=== PATIENT | female | born 1970 | race Native Hawaiian/Other Pacific Islander ===

== ENCOUNTER 2017-12-29 13:50 | Emergency (ER) | payer SELFPAY ==
--- NOTE | 2017-12-29 16:01 | C.PDOC ---
47-year-old female, presents to the emergency department with complaints of pain to her right breast for 2 months. Patient states she has felt a "hard lump " in the breast for one year, and has a scheduled mammogram and ultrasound on 01/18/18. Patient denies chest pain, palpitations, SOB, fever, redness, swelling, discharge, nausea/vomiting. Of note, pt requesting a test. Denies family history of breast cancer (Jimena Peterson) History Per: Patient History/Exam Limitations: no limitations Current Symptoms Are (Timing): Still Present <Jimena Peterson - Last Filed: 12/29/17 18:41> <Dylan Shukla - Last Filed: 12/30/17 14:04> Time Seen by Provider: 12/29/17 15:06 Chief Complaint (Nursing): Breast Problem Past Medical History Reviewed: Historical Data, Nursing Documentation, Vital Signs - Medical History PMH: No Chronic Diseases Family History: States: No Known Family Hx - Social History Hx Alcohol Use: No Hx Substance Use: No - Immunization History Hx Tetanus Toxoid Vaccination: No Hx Influenza Vaccination: No Hx Pneumococcal Vaccination: No <Jimena Peterson - Last Filed: 12/29/17 18:41> Vital Signs: Last Vital Signs Temp 98 F 12/29/17 16:54 Pulse 78 12/29/17 16:54 Resp 18 12/29/17 16:54 BP 136/74 12/29/17 16:54 Pulse Ox 99 12/29/17 18:46 Review Of Systems Constitutional: Negative for: Fever, Chills Cardiovascular: Positive for: Other (breast pain). Negative for: Chest Pain Gastrointestinal: Negative for: Nausea, Vomiting, Abdominal Pain Musculoskeletal: Negative for: Back Pain Skin: Negative for: Rash Neurological: Negative for: Weakness, Numbness, Headache, Dizziness <Jimena Peterson - Last Filed: 12/29/17 18:41> Physical Exam - Physical Exam Appears: Non-toxic, No Acute Distress Skin: Normal Color, Warm, Dry, No Rash Head: Atraumatic, Normacephalic Eye(s): bilateral: Normal Inspection, Eyelid Inflammation Nose: Normal Oral Mucosa: Moist Lips: Normal Appearing Neck: Normal ROM Chest: Symmetrical, Other (Breasts symmetric with normal appearance, no erythema or skin dimpling or other skin changes. Right breast with firm fibrous/ nodular tissue and tendernss above the areola at 12-1oclock) Cardiovascular: Rhythm Regular, No Murmur Respiratory: Normal Breath Sounds, No Accessory Muscle Use Extremity: Normal ROM, No Deformity, No Swelling Neurological/Psych: Oriented x3, Normal Speech <Jimena Peterson L - Last Filed: 12/29/17 18:41> ED Course And Treatment O2 Sat by Pulse Oximetry: 99 (RA) Pulse Ox Interpretation: Normal - CT Scan/US breast US Other Rad Studies (CT/US): Read By Radiologist, Radiology Report Reviewed CT/US Interpretation: Accession No. : [id number]. Patient Name / ID : FRACISCO ENCARNACION / [id number]. Exam Date : 12/29/2017 15:37:03 ( Approved ). Study Comment : Sex / Age : F / 47Y. Creator : Shefali Amado. Dictator : Shefali Amado. Blister Rust Eradicator : Header Up : Shefali Gill. Approver2 : Report Date : 12/29/2017 16:07:33. My Comment : . HISTORY: old female with right breast pain which according to Jimena, a PA in the emergency room who has ordered the exam has her pain mostly in the 12 to 1 o'clock position. This apparently was not evident to the speech therapist technician the hence no such labeling on the images is provided. No personal or family history of breast cancer. Patient denies ever having any prior mammograms. TECHNIQUE: Sonographic evaluation of the right breast was performed. FINDINGS: RIGHT BREAST: Right breast 11 o'clock: On series 1, image number 13, a single image there is a the parallel hypoechoic focus which according to the technologist's bleed was probably breast tissue. The appearance stand out to me and measures 8 x 3 mm. The single image. The remainder the presented images are unremarkable. No axillary lymphadenopathy identified. IMPRESSION: Indeterminate focus right breast 11 o'clock possibly technical and incompletely evaluated this urgent basis. No drainable abscess seen. Further evaluation is recommended. BIRADS: BIRADS 0 Incomplete - Need additional imaging evaluation and/or prior mammograms for comparison. Recommendation: Recall for additional imaging and/or comparison with prior examination, as described above. Patient will be contacted. The patient is recommended to present to her physician for a directed physical exam of her right breast pain to evaluate for any right breast lumps. Afterwards the patient is recommended to have a diagnostic mammogram (patient's ages 47) the right being a diagnostic in the left being screening. The patient is also recommended to have a minimal repeat right breast ultrasound following a physician or PA or nurse's physical examination patient's right breast. A left breast evaluation is also recommended prior to any subsequent imaging evaluation. Comments: No emergent drainable abscess identified in the right breast. Patient management was directly discussed with an Hess in the emergency room who has ordered the exam immediately prior to this dictation <Jimena Peterson - Last Filed: 12/29/17 18:41> Medical Decision Making <Jimena Peterson - Last Filed: 12/29/17 18:41> <Dylan Shukla Last Filed: 12/30/17 14:04> Medical Decision Making: Impression: Right breast pain Plan: * US Breast at patient request * Tylenol * UA test negative US of breast ordered and reviewed showing no drainable abscess. Patient has to follow up for further evaluation and have mammogram as scheduled for January 18. Patient stable for discharge (Jimena Peterson) Disposition Counseled Patient/Family Regarding: Studies Performed, Diagnosis, Need For Followup, Rx Given - Disposition Disposition Time: 16:00 - POA Present On Arrival: None <Jimena Peterson - Last Filed: 12/29/17 18:41> <Dylan Shukla Last Filed: 12/30/17 14:04> - Disposition Referrals: [facility] [Outside] [facility] [Outside] Disposition: HOME/ ROUTINE Condition: GOOD Additional Instructions: Follow up with the clinic in 2-5 days for further evaluation and outpatient mammogram. Take pain medications as prescribed. Return to the emergency department at any time if symptoms persist or worsen. [facility] [phone]. Prescriptions: Naproxen [Naprosyn] 1 tab PO BID PRN #25 tab PRN Reason: Pain Instructions: Common Breast Problems Forms: [employer] (Malagasy) - Clinical Impression Clinical Impression: Pain of breast - Scribe Statement The provider has reviewed the documentation as recorded by the Scribe (Lroi Aguilar) <Jimena Peterson - Last Filed: 12/29/17 18:41> - PA / FUEL HANDLER / Resident Statement MD/ has reviewed & agrees with the documentation as recorded. <Dylan Shukla - Last Filed: 12/30/17 14:04> - Scribe Statement All medical record entries made by the Scribe were at my direction and personally dictated by me. I have reviewed the chart and agree that the record accurately reflects my personal performance of the history, physical exam, medical decision making, and the department course for this patient. I have also personally directed, reviewed, and agree with the discharge instructions and disposition. (Jimena Peterson)
--- NOTE | 2017-12-29 16:10 | US ---
HISTORY: old female with right breast pain which according to an Hess in the emergency room who has ordered the exam has her pain mostly in the 12 to 1 o'clock position. This apparently was not evident to the electrical engineering technician the hence no such labeling on the images is provided. No personal or family history of breast cancer. Patient denies ever having any prior mammograms TECHNIQUE: Sonographic evaluation of the right breast was performed. FINDINGS: RIGHT BREAST: Right breast 11 o'clock: On series 1, image number 13, a single image there is a the parallel hypoechoic focus which according to the technologist's bleed was probably breast tissue. The appearance stand out to me and measures 8 x 3 mm. The single image. The remainder the presented images are unremarkable No axillary lymphadenopathy identified. IMPRESSION: Indeterminate focus right breast 11 o'clock possibly technical and incompletely evaluated this urgent basis. No drainable abscess seen. Further evaluation is recommended BIRADS: BIRADS 0 Incomplete - Need additional imaging evaluation and/or prior mammograms for comparison Recommendation: Recall for additional imaging and/or comparison with prior examination, as described above. Patient will be contacted. The patient is recommended to present to her physician for a directed physical exam of her right breast pain to evaluate for any right breast lumps. Afterwards the patient is recommended to have a diagnostic mammogram (patient's ages 47) the right being a diagnostic in the left being screening. The patient is also recommended to have a minimal repeat right breast ultrasound following a physician or PA or nurse's physical examination patient's right breast. A left breast evaluation is also recommended prior to any subsequent imaging evaluation. Comments: No emergent drainable abscess identified in the right breast. Patient management was directly discussed with an Hess in the emergency room who has ordered the exam immediately prior to this dictation
[2017-12-29 16:55] VITALS: BP 136/74; PULSE 78; RESP 18; TEMP 98
[2017-12-29 17:39] VITALS: O2SAT 99
== END 2017-12-29 16:55 | disposition home or self-care (01) ==
LOC: C.ER 13:50
DX: N64.4 Mastodynia (principal)

== ENCOUNTER 2018-09-03 08:56 | Outpatient (CLI) | payer OTHER | END 2018-09-03 08:57 | disposition home or self-care (01) | LOC: C.PAT 08:56 | DX: D05.11 Intraductal carcinoma in situ of right breast (principal) ==

== ENCOUNTER 2018-09-21 08:45 | Observation (INO) | payer OTHER ==
[2018-09-14 12:24] VITALS: BMI 30.7
[2018-09-21] MEDS ORDERED: Midazolam 2 MG/2 ML VIAL ONE (10:39)
[2018-09-21] MEDS ORDERED: Propofol 10 mg/ml Inj (20 ML) ONE (10:39)
[2018-09-21] MEDS ORDERED: ceFAZolin 1 gm in NS 1 GM/100 ML BAG IVPB ONE (10:49)
[2018-09-21] MEDS ORDERED: Succinylcholine Chloride 20 mg/ml Syr (5 ml) IV ONE (10:59)
[2018-09-21] MEDS ORDERED: Lidocaine Hydrochloride 5 ML INJ ONE (10:59)
[2018-09-21] MEDS ORDERED: Rocuronium 10 mg/ml (5 ml) ONE (10:59)
[2018-09-21] MEDS ORDERED: Dexamethasone 4 mg/1 ml ONE (11:09)
[2018-09-21] MEDS ORDERED: Neostigmine 1:1000 (1 mg/ml) Inj ONE (11:14)
--- NOTE | 2018-09-21 12:21 | PCM.SURG1 ---
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
[2018-09-21] MEDS ORDERED: Oxycodone/Acetaminophen 5/325 mg Tab PO PRN (12:22)
[2018-09-21] MEDS: HYDROmorphone 0.5 mg/0.5 ml ISec IVP PRN ×2 (12:40→14:41)
[2018-09-21] MEDS: Sodium Chloride 0.9% 1,000 ML IV SCH ×2 (16:00→22:57)
[2018-09-21 17:16] VITALS: RESP 20
[2018-09-21] MEDS ORDERED: Influenza Vaccine 60 mcg/0.5 mL SYR (4YR UP) IM ONE (20:22)
[2018-09-21] MEDS ORDERED: Pneumococcal 23-Valent Vaccine IM ONE (20:22)
[2018-09-21 22:52] VITALS: TEMP 98.4
[2018-09-22] MEDS: Sodium Chloride 0.9% 1,000 ML IV SCH (02:19)
[2018-09-22 07:43] LABS: BASO % 0.4 % (0.0-2.0); EOS % 0.2 % (0.0-4.0); LYMPH # 2.7 K/uL (1.0-4.3); LYMPH % 22.5 % (20.0-40.0); MEAN CELL VOLUME 86.7 fL (81.0-99.0); MEAN CORPUSCULAR HEMOGLOBIN 27.6 pg (27.0-31.0); MEAN CORPUSCULAR HGB CONC 31.8 g/dL (33.0-37.0); MEAN PLATELET VOLUME 8.4 fL (7.2-11.7); MONO % 8.2 % (0.0-10.0); NEUT # 8.4 K/uL (1.8-7.0); NEUT % 68.7 % (50.0-75.0); RBC 3.89 Mil/uL (3.80-5.20); RED CELL DISTRIBUTION WIDTH 13.4 % (11.5-14.5); WHITE BLOOD COUNT 12.2 K/uL (4.8-10.8)
[2018-09-22 07:58] LABS: HEMOGLOBIN 10.8 g/dL (11.0-16.0)
[2018-09-22 08:03] LABS: BLOOD UREA NITROGEN 10 mg/dL (7-17); CALCIUM 7.7 mg/dl (8.6-10.4); GFR NON-AFRICAN AMERICAN > 60
[2018-09-22 09:28] VITALS: BP 106/62; PULSE 72
[2018-09-22 10:31] VITALS: O2SAT 96
--- NOTE | 2018-09-22 11:39 | CP.PCM.DIS ---
Provider - Provider Date of Admission: 09/21/18 08:56 Attending physician: Mirlande Diamond MD Time Spent in preparation of Discharge (in minutes): 40 Hospital Course - Lab Results Lab Results: Most Recent Lab Values WBC 12.2 K/uL (4.8-10.8) H 09/22/18 07:20 RBC 3.89 Mil/uL (3.80-5.20) 09/22/18 07:20 Hgb 10.8 g/dL (11.0-16.0) L D 09/22/18 07:20 Hct 34.3 % (34.0-47.0) 09/22/18 07:20 MCV 86.7 fL (81.0-99.0) 09/22/18 07:20 MCH 27.6 pg (27.0-31.0) 09/22/18 07:20 MCHC 31.8 g/dL (33.0-37.0) L 09/22/18 07:20 RDW 13.4 % (11.5-14.5) 09/22/18 07:20 Plt Count 267 K/uL (130-400) 09/22/18 07:20 MPV 8.4 fL (7.2-11.7) 09/22/18 07:20 Neut % (Auto) 68.7 % (50.0-75.0) 09/22/18 07:20 Lymph % (Auto) 22.5 % (20.0-40.0) 09/22/18 07:20 Snyder % (Auto) 8.2 % (0.0-10.0) 09/22/18 07:20 Eos % (Auto) 0.2 % (0.0-4.0) 09/22/18 07:20 Baso % (Auto) 0.4 % (0.0-2.0) 09/22/18 07:20 Neut # (Auto) 8.4 K/uL (1.8-7.0) H 09/22/18 07:20 Lymph # (Auto) 2.7 K/uL (1.0-4.3) 09/22/18 07:20 Snyder # (Auto) 1.0 K/uL (0.0-0.8) H 09/22/18 07:20 Eos # (Auto) 0.0 K/uL (0.0-0.7) 09/22/18 07:20 Baso # (Auto) 0.0 K/uL (0.0-0.2) 09/22/18 07:20 Sodium 132 mmol/L (132-148) 09/22/18 07:20 Potassium 3.8 mmol/L (3.6-5.2) 09/22/18 07:20 Chloride 100 mmol/L (98-107) 09/22/18 07:20 Carbon Dioxide 28 mmol/L (22-30) 09/22/18 07:20 Anion Gap 8 (10-20) L 09/22/18 07:20 BUN 10 mg/dL (7-17) 09/22/18 07:20 Creatinine 0.6 mg/dL (0.7-1.2) L 09/22/18 07:20 Est GFR ( Amer) > 60 09/22/18 07:20 Est GFR (Non-Af Amer) > 60 09/22/18 07:20 POC Glucose (mg/dL) 208 mg/dL (65-110) H 09/22/18 11:10 Random Glucose 114 mg/dL (65-105) H 09/22/18 07:20 Calcium 7.7 mg/dl (8.6-10.4) L 09/22/18 07:20 Blood Type O POSITIVE 09/21/18 10:13 Antibody Screen Negative 09/21/18 10:13 - Hospital Course Hospital Course: 47F presented same day for right breast modified radical mastectomy for DCIS. She tolerated the procedure well and was monitored overnight. Drain in place with decreasing output. Discharge Exam - Respiratory Exam Respiratory Exam: Clear to PA & Lateral, NORMAL BREATHING PATTERN - Cardiovascular Exam Cardiovascular Exam: REGULAR RHYTHM, +S1, +S2 - GI/Abdominal Exam GI & Abdominal Exam: Soft. absent: Distended, Firm, Guarding, Rebound, Rigid, Tenderness - Neurological Exam Neurological exam: Alert, Oriented x3 - Skin Skin Exam: Dry, Intact, Normal Color, Warm Additional comments: right breast dressing in place. MAGGY drain in place. dark serosanguinous output Discharge Plan - Discharge Medications Prescriptions: Docusate [Colace] 100 mg PO DAILY #30 cap oxyCODONE/Acetaminophen [Percocet 5/325 mg Tab] 1 tab PO Q6 PRN #12 tab PRN Reason: Pain, Severe (8-10) - Follow Up Plan Condition: GOOD Disposition: HOME/ ROUTINE Instructions: Mastectomy (DC) Additional Instructions: 1) Please follow up with Dr Diamond in 1-2 weeks 2) Please remove dressing tomorrow 3) Empty drain daily 4) May shower but do not bath 5) Take medications as prescribed Referrals: Mirlande Diamond MD [Staff Provider] -
--- NOTE | 2018-09-22 23:42 | OP ---
PROCEDURE DATE: 09/21/2018 SURGEON: Mirlande Diamond MD. MECHANICAL CAD DRAFTER: Denis Pulido DO. ANESTHESIA: General. ANESTHESIOLOGIST: Holger Dudley MD. PREOPERATIVE DIAGNOSIS: Right ductal carcinoma in situ. POSTOPERATIVE DIAGNOSIS: Right breast ductal carcinoma in situ. PROCEDURE: Right modified radical mastectomy. DESCRIPTION OF THE OPERATION: With the patient in the supine position under adequate general anesthesia, the right upper chest, axilla, and upper arm were prepped and draped in the usual sterile fashion. The patient had a palpable mass located deep to the areolar central portion of the right breast and was large in size. An elliptical incision was mapped out to include the nipple-areolar complex and the skin overlying the mass. The upper incision was made and the skin flap was raised using primarily electrocautery down to the chest wall. Similarly, an inferior incision was made and again the skin flap was raised down to the chest wall including the inferior ridge of the breast tissue and in both areas of the flaps were noted to be well away from the area of the primary tumor. The breast tissue was then dissected off of the pectoral fascia beginning at the lower outer quadrant to preserve the serratus muscle, and when this had been completely freed, we began medially to remove the tissue off the pectoral fascia. There was no visible tumor seen outside of the breast tissue removed. The dissection was completed up towards the axilla. The axillary fascia was then incised, and after visualization of axillary vein, fatty axillary tissue which appeared to contain a number of lymph nodes was dissected downwards from the area of the vein. Attachments were hemoclipped and dissected and the axillary contents were removed in continuity with the breast. The operative site was examined for hemostasis and irrigated with sterile water. A 19-Lux[place]bourgish MAGGY drain was placed beneath the chest wall flaps and extended into the axilla and the flaps were then approximated with tenacula and noted to come together with minimal tension. The incision was then closed with bill. Dry sterile dressing was applied. The patient tolerated the procedure well and was transferred to the recovery room in stable condition. Estimated blood loss from the procedure was 150 mL. Denis Adunbarin, DO Mirlande Diamond MD [facility] # [id number] [place]
== END 2018-09-22 14:44 | disposition home or self-care (01) ==
LOC: C.9S 08:56 → INTOOBSV 08:56 → C.6T 14:50
PROVIDERS: ADMIT Specialist; ATTEND Specialist
DX: D05.11 Intraductal carcinoma in situ of right breast (principal)
CPT/HCPCS: 19307; 36415; 80048; 82948; 85025; 86850; 86900; 88307; 97110; 97166; G0378; G8987; G8988; J0690; J1170; J2250; J2405; J2704; J2710; J3010; J7030; J7120

== ENCOUNTER 2018-11-02 13:56 | Outpatient (CLI) | payer OTHER | END 2018-11-02 13:57 | disposition home or self-care (01) | LOC: C.CARD 13:56 ==

== ENCOUNTER 2018-11-12 12:02 | Outpatient (CLI) | payer OTHER | END 2018-11-12 12:03 | disposition home or self-care (01) | LOC: C.LAB 12:02 | DX: D05.11 Intraductal carcinoma in situ of right breast (principal) ==

== ENCOUNTER 2018-12-03 09:37 | Outpatient (CLI) | payer OTHER | END 2018-12-03 09:38 | disposition home or self-care (01) | LOC: C.PAT 09:37 | DX: Z01.818 Encounter for other preprocedural examination (principal) ==

== ENCOUNTER 2018-12-10 12:52 | Day surgery (SDC) | payer OTHER ==
[2018-11-11 12:09] VITALS: BMI 30.7
[2018-12-10] MEDS ORDERED: Propofol 10 mg/ml Inj (20 ML) ONE (14:58)
[2018-12-10] MEDS: ceFAZolin 1 gm in NS 1 GM/100 ML BAG IVPB ONE ×2 (15:08→15:10)
[2018-12-10] MEDS: Lidocaine Hydrochloride 10 ML INJ ONE ×2 (15:09→15:19)
[2018-12-10] MEDS: HEPARIN-NS 5,000 UNITS/500 ML 5,000 UNIT/500 ML BAG IV ONE ×2 (15:09→15:10)
[2018-12-10] MEDS ORDERED: HYDROmorphone 0.5 mg/0.5 ml ISec IVP PRN (15:35)
[2018-12-10] MEDS ORDERED: Oxycodone/Acetaminophen 5/325 mg Tab PO PRN (16:07)
--- NOTE | 2018-12-10 16:09 | PCM.SURG1 ---
Surgeon's Initial Post Op Note - Surgeon's Notes Surgeon: Dr. Diamond Telephone Surveyor: PGY2 Type of Anesthesia: General LMA Pre-Operative Diagnosis: Right Breast Ca Operative Findings: Position in place. Approach R. Subclavian Post-Operative Diagnosis: As above Operation Performed: Right Subclavian Portacath Placement Specimen/Specimens Removed: none Estimated Blood Loss: EBL {In ML}: 5 Drains Used: No Drains Post-Op Condition: Good Date of Surgery/Procedure: 12/10/18 Time of Surgery/Procedure: 16:09
[2018-12-10 17:26] VITALS: RESP 18
[2018-12-10 17:53] VITALS: BP 129/60; PULSE 97; TEMP 97.8; O2SAT 100
--- NOTE | 2018-12-10 18:26 | RAD ---
Date of service: 12/10/2018 HISTORY: s/p PORT placement COMPARISON: Comparison is made with 09/03/2018 TECHNIQUE: 1 view obtained. FINDINGS: LUNGS: No active pulmonary disease. PLEURA: No significant pleural effusion identified, no pneumothorax apparent. CARDIOVASCULAR: No aortic atherosclerotic calcification present. Normal cardiac size. Interval insertion of right-sided Infusaport noted at appropriate position. OSSEOUS STRUCTURES: No significant abnormalities. VISUALIZED UPPER ABDOMEN: Normal. OTHER FINDINGS: None. IMPRESSION: Interval insertion of right-sided Infusaport noted at appropriate position. No evidence of pneumothorax.
--- NOTE | 2018-12-11 02:48 | OP ---
PROCEDURE DATE: 12/10/2018 SURGEON: Mirlande Diamond MD MINING TEACHER: Wilver Velazquez DO, PGY-2 ANESTHESIA: General LMA. ANESTHESIOLOGIST: Karly Bojorquez MD PREOPERATIVE DIAGNOSIS: Right breast cancer. POSTOPERATIVE DIAGNOSIS: Right breast cancer. PROCEDURE: Right subclavian Port-A-Cath placement. ESTIMATED BLOOD LOSS: 5 mL. INDICATION FOR SURGERY: This is a 48-year-old female status post modified radical mastectomy with a diagnosis of invasive right breast ductal carcinoma. The patient agreed to the procedure set forth and explained risks and benefits and the patient agreed. DESCRIPTION OF PROCEDURE: The patient was brought into the operating room and placed in supine position. Anesthesia was administered and general LMA anesthesia was induced. The patient was then prepped and draped in the usual sterile fashion and time-out was taken verifying correct patient, procedure, and laterality. The landmarks were made for the right subclavian. Local anesthesia of 0.25% bupivacaine was used to infiltrate subcutaneously. Introducer needle was then used to obtain access to the subclavian vein. Flush return was confirmed as venous guidewire was then passed through. Fluoroscopy was used to confirm placement. Next, an incision was made using a #15 blade inferiorly over the right chest and a pocket was created using a combination of sharp and blunt dissection. Appropriate hemostasis was achieved with Bovie electrocautery. Next, the catheter was then passed through from the pocket and tunneled towards the location of the guidewire. Once again, fluoroscopy was used to ensure that guidewire was in correct position. A sheath introducer was then placed over the guidewire with the wire removed, being placed into the introducer . Fluoroscopy was then used to confirm appropriate positioning of the catheter. The skin was then closed with interrupted 3-0 Vicryl followed by a running 4-0 Monocryl stitch. A heparin flush was used to flush the port with appropriate return as well. Steri-Strips were then applied to the location. The patient was then extubated and taken to the postoperative care unit in stable condition. All counts were correct at the end of the case. Dr. Diamond was present and participated in all aspects of the case. Wilverjose Velazquez DO Mirlande Diamond MD [facility] # [id number]
== END 2018-12-10 17:50 | disposition home or self-care (01) ==
LOC: C.SDS 12:52
PROVIDERS: ATTEND Specialist
DX: C50.911 Malignant neoplasm of unspecified site of right female breast (principal); E11.9 Type 2 diabetes mellitus without complications; I10 Essential (primary) hypertension; Z90.11 Acquired absence of right breast and nipple; Z79.84 Long term (current) use of oral hypoglycemic drugs; Z79.82 Long term (current) use of aspirin; Z79.899 Other long term (current) drug therapy
CPT/HCPCS: 36561; 71045; 82948; J0690; J1170; J1644; J2405; J2704; J3010